=== PATIENT | female | born 1955 | race Asian ===

== ENCOUNTER 2022-12-11 10:48 | Day surgery (SDC) | payer OTHER ==
[~2022-12-11] VITALS: Ht 185.4 cm; Wt 63.0 kg
[~2022-12-11 10:48] MED LIST: [UNRECOGNIZED DRUG - REMARK]
[2022-12-11] MEDS ORDERED: MIDAZOLAM 5 MG/5 ML VIAL ONE (11:33)
[2022-12-11] MEDS ORDERED: fentaNYL citrate 0.05 MG/ML VIAL ONE (11:33)
[2022-12-11] MEDS ORDERED: MIDAZOLAM 2 MG/2 ML VIAL IVP ONE (15:30)
== END 2022-12-11 13:30 | disposition home or self-care (01) ==
LOC: MDS 10:48 → MMU 10:57 → MDS 13:30
PROVIDERS: ATTEND Internal Medicine Gastroenterology
DX: K21.00 Gastro-esophageal reflux disease with esophagitis, without bleeding (principal); G43.909 Migraine, unspecified, not intractable, without status migrainosus; K22.70 Barrett's esophagus without dysplasia; K44.9 Diaphragmatic hernia without obstruction or gangrene; I10 Essential (primary) hypertension; Z88.6 Allergy status to analgesic agent; Z79.899 Other long term (current) drug therapy
CPT/HCPCS: 43235; J2250; J3010